=== PATIENT | female | born 1995 ===

== ENCOUNTER → 2022-06-16 | Emergency (ER) | payer OTHER | END | disposition home or self-care (01) | LOC: ER 03:48 | DX: S61.216A Laceration without foreign body of right little finger without damage to nail, initial encounter (principal); W25.XXXA Contact with sharp glass, initial encounter; Y93.G1 Activity, food preparation and clean up; Y92.89 Other specified places as the place of occurrence of the external cause; Y99.9 Unspecified external cause status ==